=== PATIENT | female | born 1975 | race Caucasian/White ===

== ENCOUNTER 2021-04-10 07:06 | Outpatient (REF) | payer OTHER, SELFPAY ==
[2021-04-10 07:47] LABS: Hematocrit 43.4 % (37-47); PLT CLUMP 1
[2021-04-10 07:49] LABS: Hemoglobin 14.1 g/dl (12.0-16.0); Mean Corpuscular HGB Conc 32.5 g/dl (31.0-35.0); Mean Corpuscular Hemoglobin 29.8 pg (27.0-33.0); Mean Corpuscular Volume 91.8 fL (80-98); Mean Platelet Volume 10.6 fL (9.4-12.3); Red Blood Count 4.73 X10*6/uL (4.20-5.50); Red Cell Distribution Width 13.1 % (11.0-16.0); White Blood Count 4.5 X10*3/uL (4.8-10.8)
[2021-04-10 08:11] LABS: Alanine Aminotransferase 17 U/L (0-31); Albumin Level 4.2 g/dL (3.5-5.0); Alkaline Phosphatase 98 U/L (39-117); Anion Gap 15 (12-20); Aspartate Amino Transferase 21 U/L (5-31); Bilirubin Total 0.6 mg/dL (0.0-1.0); Blood Urea Nitrogen 9 mg/dL (9-16); Calcium 9.3 mg/dL (8.4-10.2); Carbon Dioxide 31 mmol/L (22-29); Chloride 98 mmol/L (96-108); Cholesterol 219 mg/dL; Estimated Glomerular Filt Rate > 60; Glucose Fasting 106 mg/dL (60-99); HDL Cholesterol 46 mg/dL; LDL Cholesterol Calculated 146 mg/dl; Potassium 4.4 mmol/L (3.3-5.1); Sodium 140 mmol/L (135-145); Total Protein 6.8 g/dL (6.5-8.0); Triglycerides 135 mg/dL
[2021-04-10 08:33] LABS: TSH reflex Free T4 1.34 uIU/mL (0.32-4.0); Vitamin D 25-OH Total 16.7 ng/mL (>30)
[2021-04-10 09:13] LABS: Reflex LDLD? No
[2021-04-10 09:46] LABS: Folate 3.7 ng/mL (> or = 4.0); Vitamin B12 375 pg/mL (200-900)
[2021-04-10 09:57] LABS: Glucose Urine UA NEG (NEG); Leukocyte Esterase Urine NEG (NEG); Nitrite Urine NEG (NEG); Urine Blood NEG (NEG); Urine Ketones 5 MG/DL (NEG); Urine Protein TRACE MG/DL (NEG-TRACE)
[2021-04-10 09:58] LABS: Appearance Urine CLEAR; Color Urine DARK YELLOW
== END 2021-04-10 07:07 | disposition home or self-care (01) ==
LOC: HO.LAB 07:06
PROVIDERS: PCP Hospitalist; Visit Provider Nurse Practitioner Family
DX: F17.200 Nicotine dependence, unspecified, uncomplicated (principal); F32.2 Major depressive disorder, single episode, severe without psychotic features; F41.0 Panic disorder [episodic paroxysmal anxiety]; I10 Essential (primary) hypertension
CPT/HCPCS: 36415; 80053; 80061; 81003; 82306; 82607; 82746; 84443; 85027

== ENCOUNTER 2022-09-15 06:54 | Outpatient (REF) | payer OTHER, SELFPAY ==
[2022-09-15 07:23] LABS: Hematocrit 45.9 % (37.0-47.0); Hemoglobin 14.3 g/dl (12.0-16.0); Mean Corpuscular HGB Conc 31.2 g/dl (31.0-35.0); Mean Corpuscular Hemoglobin 29.1 pg (27.0-33.0); Mean Corpuscular Volume 93.3 fL (80.0-98.0); Mean Platelet Volume 10.3 fL (9.4-12.3); Platelet Count 193 X10*3/uL (160-400); Red Blood Count 4.92 X10*6/uL (4.20-5.50); Red Cell Distribution Width 12.6 % (11.0-16.0); White Blood Count 5.1 X10*3/uL (4.8-10.8)
[2022-09-15 07:49] LABS: Alanine Aminotransferase 15 U/L (0-31); Albumin Level 4.1 g/dL (3.5-5.0); Alkaline Phosphatase 110 U/L (39-117); Anion Gap 17 (12-20); Aspartate Amino Transferase 20 U/L (5-31); Bilirubin Total 0.2 mg/dL (0.0-1.0); Blood Urea Nitrogen 6 mg/dL (9-16); Calcium 9.3 mg/dL (8.4-10.2); Carbon Dioxide 32 mmol/L (22-29); Chloride 98 mmol/L (96-108); Cholesterol 204 mg/dL; Estimated Glomerular Filt Rate > 60; Glucose Fasting 99 mg/dL (60-99); HDL Cholesterol 38 mg/dL; LDL Cholesterol Calculated 135 mg/dl; Potassium 4.7 mmol/L (3.3-5.1); Sodium 142 mmol/L (135-145); Total Protein 6.6 g/dL (6.5-8.0); Triglycerides 158 mg/dL
[2022-09-15 07:51] LABS: Creatinine Urine 151.03 mg/dL; Microalbum/Creatinine Ratio Ur 3.3 ug/mg cr
[2022-09-15 08:11] LABS: TSH reflex Free T4 1.56 uIU/mL (0.32-4.0)
== END 2022-09-15 06:55 | disposition home or self-care (01) ==
LOC: HO.LAB 06:54
PROVIDERS: PCP Physician Assistant; Visit Provider Physician Assistant
DX: I10 Essential (primary) hypertension (principal)
CPT/HCPCS: 36415; 80053; 80061; 82043; 84443; 85027

== ENCOUNTER → 2023-03-07 14:37 | Outpatient (BNVA) | payer OTHER, SELFPAY | PROVIDERS: PCP Physician Assistant; Visit Provider Nurse Practitioner Family | DX: M48.9 Spondylopathy, unspecified (principal); M25.561 Pain in right knee; M47.816 Spondylosis without myelopathy or radiculopathy, lumbar region; M54.16 Radiculopathy, lumbar region; Z91.81 History of falling | CPT/HCPCS: 99202 ==

== ENCOUNTER 2023-03-10 11:04 | Outpatient (REF) | payer OTHER, SELFPAY ==
--- NOTE | ~2023-03-10 | XR_ITS ---
EXAMINATION: XR lumbar spine 6V w bending CLINICAL INFORMATION: Reason for Exam M47.816 - Spondylosis without myelopathy or radiculopathy, lumbar region COMPARISON: None TECHNIQUE: 4 views of the lumbar spine FINDINGS: 5 nonrib-bearing lumbar-type vertebral bodies. Vertebral body heights are maintained. Alignment is maintained. Mild multilevel degenerative disc disease with loss of disc space height, facet arthropathy and disc osteophyte complexes. This is worst at. L4/L5 Atherosclerotic calcifications of the abdominal aorta. XR/XR lumbar spine 6V w bending IMPRESSION: Mild spondylosis of the lumbar spine, as above detailed.
--- NOTE | ~2023-03-10 | XR_ITS ---
EXAMINATION: XR cervical spine 3V CLINICAL INFORMATION: Pain COMPARISON: None TECHNIQUE: 3 views of the cervical spine were obtained. FINDINGS: The cervical spine is visualized to the level of C5 on the lateral view. Vertebral body alignment is maintained. Vertebral body heights are maintained. Lateral masses of C1 are well aligned on C2. Visualized portion of the dens is intact. Mild degenerative disc disease at C5/C6, manifested by disc space narrowing and osteophytosis. No prevertebral soft tissue swelling. XR/XR cervical spine 3V IMPRESSION: Mild spondylosis of the cervical spine, as above detailed. No significant spondylolisthesis.
--- NOTE | ~2023-03-10 | XR_ITS ---
EXAMINATION: XR KNEE, RIGHT CLINICAL INFORMATION: Right knee pain COMPARISON: 12/30/2006 TECHNIQUE: Three views of the right knee. FINDINGS: Tricompartmental joint space narrowing and osteophytosis. Small suprapatellar effusion. No acute fracture or dislocation. XR/XR knee RT 3V IMPRESSION: Moderate degenerative changes of the right knee joint.
== END 2023-03-10 11:05 | disposition home or self-care (01) ==
LOC: HO.XRAY 11:04
PROVIDERS: PCP Physician Assistant; Visit Provider Nurse Practitioner Family
DX: M25.561 Pain in right knee (principal); M47.816 Spondylosis without myelopathy or radiculopathy, lumbar region; M54.16 Radiculopathy, lumbar region; M48.9 Spondylopathy, unspecified; Z91.81 History of falling
CPT/HCPCS: 72040; 72114; 73562

== ENCOUNTER → 2023-04-13 15:23 | Outpatient (BNVA) | payer OTHER, SELFPAY | PROVIDERS: PCP Physician Assistant; Visit Provider Nurse Practitioner Family | DX: M47.816 Spondylosis without myelopathy or radiculopathy, lumbar region (principal); M17.11 Unilateral primary osteoarthritis, right knee; M25.561 Pain in right knee; M48.9 Spondylopathy, unspecified | CPT/HCPCS: 99212 ==

== ENCOUNTER 2023-11-17 15:04 | Outpatient (AMB) | payer OTHER, SELFPAY ==
[2023-11-17 15:05] VITALS: BP 134/86; PULSE 80; RESP 17; BMI 38.3
--- NOTE | 2023-11-17 15:05 | MHC.PC.OV ---
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 Accompanied by: Self / Same As Patient Allergies morphine [Morphine] Adverse Reaction (Intermediate, Verified 11/17/23 15:30) NAUSEA & VOMITING Seasonal IC Allergy (Unknown, Uncoded 11/17/23 15:05) sneeze, puff eyes Medication List - Last Reconciled 11/17/23 by Dexter Trejo PA-C acetaminophen 500 mg PO Q6H PRN cane As directed celecoxib 200 mg PO BID PRN cholecalciferol (vitamin D3) 25 mcg PO DAILY 90 days clobetasol 0.05% 1 appl topical BEDTIME 30 days clonazepam 1 mg PO BID commode (bedside commode) As directed quetiapine 400 mg PO BEDTIME sertraline 100 mg PO DAILY tizanidine 2 mg PO BEDTIME PRN 30 days trazodone 150 mg PO BEDTIME PRN triamcinolone acetonide 0.1% 1 appl topical BID Tobacco use date assessed: 11/17/23 Dental Screening Dental Screen Date: 11/17/23 Did you have a dental visit in the last 12 months?: No Did you have a dental problem in the last 6 months where you did not have access to dental care?: No Was dental information given to patient?: No (No teeth) HPI Of hypertension and smoking cessation HPI Details Patient is a 48-year-old female here today for a follow-up visit.? Patient has a past medical history significant for generalized anxiety disorder, major depressive disorder, tobacco dependency, hypertension, Eczema and psoriasis,? obesity and degenerative disc disease in cervical spine. ---> It has been quite awhile since she has been seen here the PCP office as she has severe depression and anxiety which causes her trouble to make it to medical appointments due to her mental health. Concern--> CHRONIC MEDICAL ISSUES--> Major depressive disorder/ generalized anxiety disorder:? Patient is followed by both mental health therapist and a psychiatrist ( Dr Coyne)? to manage her mental health medications .. Tobacco dependency:? Patient does understand she needs to quit smoking though has difficulty to do so. She reports she has cut down her smoking slightly..? Not willing to quit smoking at this time. ... Degenerative disc disease cervical spine:? Has seen spinal specialist in the past and was told she is not a surgical candidate.? Has done physical therapy in cortisone injections in the past without much relief of her back pain. ? Continues to use p.r.n. use of tizanidine and daily use of Tylenol with only minimal relief of her pain. [facility] Surgical History No pertinent past surgical history Family History Mother Hypertension IBS (irritable bowel syndrome) Depression Anxiety Mental health disorder CAD (coronary artery disease) Father CAD (coronary artery disease) Sister Mental health disorder Brother Mental health disorder Social History Housing: Apartment Alcohol intake: current Alcohol intake frequency: holidays/special occasions only Patient Tobacco Use Status: Current everyday Tobacco user Tobacco use type: Cigarette Cigarette Packs Per Day: 1 Cigarettes Per Day: 20 e-Cigarette/Vaping Use: Never Used Second Hand Smoke Exposure: Yes service: No Current occupational status: disabled Cognitive needs: Yes (walker/cane) Hearing needs: No Vision needs: Yes (glasses) Questionnaire PHQ-9 Over the last 2 weeks, how often have you been bothered by any of the following problems? 1. Little interest or pleasure in doing things: more than half the days 2. Feeling down, depressed, or hopeless: nearly every day 3. Trouble falling or staying asleep, or sleeping too much: nearly every day 4. Feeling tired or having little energy: more than half the days 5. Poor appetite or overeating: several days 6. Feeling bad about yourself - or that you are a failure or have let yourself or your family down: nearly every day 7. Trouble concentrating on things, such as reading the newspaper or watching television: nearly every day 8. Moving or speaking so slowly that other people could have noticed. Or the opposite - being so fidgety or restless that you have been moving around a lot more than usual: more than half the days 9. Thoughts that you would be better off or of hurting yourself in some way: several days Total score: 20 Depression Screening Interpretation: Positive Depression Screening Follow-up: Existing condition and In treatment Depression Screening Done: Yes 16205 - PHQ-9 Billing: Yes Source: Developed by Drs. Tejas Luevano, Chantel Cardona, Kolby Marks and colleagues, with an educational katelyn from [employer]. Thrive Questionnaire Date Thrive assessed: 11/17/23 I am a: Patient What is your living situation today?: I have a steady place to live Within the past 12 months, did the food you bought not last and you didn't have the money to get more?: Never true Within the past 12 months, did you worry whether your food would run out before you got money to buy more?: Never true Do you have trouble paying for medicines?: No Do you have trouble getting transportation to medical appointments?: No Do you have trouble paying your heating and electricity bill?: No Do you have trouble taking care of your child, family member or friend?: No Do you have trouble with day-to-day activities such as bathing, preparing meals, shopping, managing finances, etc.?: No Are you currently unemployed and looking for a job?: No Are you interested in more education?: No Please select the resources that you would like help with: None Currently or been in a relationship where the following occur: no concerns reported AUDIT C Alcohol Use Questionnaire (AUDIT-C) 1. How often do you have a drink containing alcohol?: Monthly or less 2. How many drinks containing alcohol do you have on a typical day when you are drinking?: 1 or 2 3. How often do you have six or more drinks on one occasion?: Never Total Score: 1 ARON-7 AMB Questionnaire ARON-7 Date ARON - 7 assessed: 11/17/23 Feeling nervous, anxious, or on edge: 2 = More than half the days Not being able to stop or control worryin = More than half the days Worrying too much about different things: 3 = Nearly every day Trouble relaxin = Nearly every day Being so restless that it is hard to sit still: 2 = More than half the days Becoming easily annoyed or irritable: 2 = More than half the days Feeling afraid as if something awful might happen: 2 = More than half the days Total ARON-7 score (0-4 normal; 5-9 mild; 10-14 moderate; 15-21 severe): 16 Source: Developed by Drs. Tejas Luevano, Chantel Cardona, Kolby Marks and colleagues, with an educational katelyn from [employer]. ARON-7 Assessment Billing ARON-7 Assessment Tool: ARON-7 Assessment 70850 Review of Systems Const Denies headache(s) Eyes Denies loss of vision ENT Denies vertigo, Denies dizziness, Denies headache(s) and Denies sore throat Card Denies chest pain, Denies leg edema and Denies lightheadedness Resp Denies cough, Denies hemoptysis and Denies wheezing GI Denies abdominal pain, Denies melena, Denies constipation, Denies diarrhea and Denies vomiting Denies urinary frequency, Denies dysuria and Denies urinary urgency Musc Denies arthralgias, Denies joint swelling, Denies numbness and Denies tingling Neuro Denies Abnormal speech present, Denies behavioral changes, Denies vertigo, Denies dizziness, Denies headache(s), Denies loss of vision, Denies memory loss, Denies numbness and Denies tingling Psych Denies anxiety, Denies behavioral changes, Denies depression, Denies memory loss and Denies panic attacks Severino/Lymph Denies easy bleeding and Denies easy bruising Aller/Immun Denies wheezing Physical exam (Primary Care) Vital Signs: Last Vital Signs Pulse 80 11/17/23 15:05 Resp 17 11/17/23 15:05 BP 134/86 11/17/23 15:05 BMI result Body Mass Index 38.3 BMI Assessment/Plan discussion: High Tobacco/Smoking Status: Tobacco use Status Tobacco use date assessed 11/17/23 11/17/23 15:07 Patient Tobacco Use Status Current everyday Tobacco 11/17/23 15:07 Tobacco use type Cigarette 11/17/23 15:07 e-Cigarette/Vaping Use Never Used 11/17/23 15:07 Are you ready to quit: No Tobacco cessation counseling provided: Yes Items discussed: Nicotine replacement Relapse Prevention: discussed the importance of a supportive environment, discussed negative mood or depression after quitting, weight gain after smoking is common and discussed dietary, exercise and/or lifestyle changes Number of minutes spent counselin CPT code: 49541 - 4-10 Minutes PHQ-9: PHQ-9 Score PHQ-9: Total score 20 11/17/23 15:30 Depression Screening Interpretation: Positive Depression Screening Follow-up: Existing condition and In treatment Thrive Assessment: Date of Thrive Assessment Date Thrive assessed 11/17/23 11/17/23 15:07 Currently or been in a relationship where the following occur: no concerns reported Const Other: Morbidly obese General: no acute distress, alert and awake Nutritional Appearance: well nourished Orientation/consciousness: oriented to person, oriented to place and oriented to time HENMT Ears: TM's normal bilaterally General nose exam: Normal nasal mucous membranes and turbinates present Eyes Conjunctivae: conjunctivae normal Sclerae: sclerae normal Pupils: Equal, round and reactive pupils present Neck Neck: Yes no lymphadenopathy and Yes no JVD Thyroid: Thyroid normal Carotids: no bruits Resp Effort & Inspection: normal respiratory effort and not tachypneic Auscultation: no crackles, no rales, no rhonchi and no wheezes Cardio Rate: regular rate Rhythm: regular rhythm Heart sounds: no murmurs and normal S1 and S2 GI Palpation (GI): Soft to palpation, nontender, no hepatomegaly and no splenomegaly Auscultation: normal bowel sounds Skin General skin exam: no rashes or lesions noted and dry skin Neuro General: oriented to person, oriented to place and oriented to time Cranial nerves: Yes Equal, round and reactive pupils present Speech: No Abnormal speech present Gait exam (Neuro): Normal gait present Motor exam (neuro): no tremor noted Extrem Right upper extremity: full ROM Left upper extremity: full ROM Right lower extremity: full ROM; no edema Left lower extremity: full ROM; no edema Psych Mental Status: mental status grossly normal Speech and movement: Normal speech and movement present Affect: normal affect Attitude: cooperative Thought process: Normal thought process present Assessment and Plan Assessment & Plan (1) Tobacco use disorder: Code(s): F17.200 - Nicotine dependence, unspecified, uncomplicated Plan: Patient continues to smoke a half pack of cigarettes per day. She has been able to reduce her cigarette smoking over the last year. He is not interested in starting nicotine replacement or medication at this time. She will like to wean her cigarettes on her own. (2) Cervical spine disease: Code(s): M48.9 - Spondylopathy, unspecified Plan: Has seen pain management several months ago was started on Celebrex which she reports is helpful. She is not interested procedures such as injections or surgery. Offered her physical therapy and she is considering. (3) Obese: Code(s): E66.9 - Obesity, unspecified Qualifiers: Body mass index: BMI 38.0-38.9 Obesity classification: adult class 2 (BMI 35 - 39.9) Obesity type: due to excess calories Serious obesity comorbidity presence: without serious comorbidity Qualified Code(s): E66.09 - Other obesity due to excess calories; Z68.38 - Body mass index [BMI] 38.0-38.9, adult Plan: Patient does understand her BMI is over 30 and will work on being more physically active and adapting to better eating habits to reduce her weight (4) RAON (generalized anxiety disorder): Code(s): F41.1 - Generalized anxiety disorder Plan: Patient's ARON-7 score positive for moderate anxiety which has been existing condition for her.. Continues to speak with a mental therapist who manages her mental health medications. She reports he feels stable at this time. (5) Tobacco dependence: Code(s): F17.200 - Nicotine dependence, unspecified, uncomplicated Plan: She does understand she needs to quit smoking and is willing to try nicotine patches per (6) Asthma: Code(s): J45.909 - Unspecified asthma, uncomplicated Qualifiers: Asthma complication type: uncomplicated Asthma persistence: intermittent Asthma severity: mild Qualified Code(s): J45.20 - Mild intermittent asthma, uncomplicated Plan: She reports her asthma has been fairly stable, rarely uses her albuterol inhaler. Denies any recent asthma exacerbations or nighttime awakenings with asthma symptoms (7) MDD (major depressive disorder), recurrent episode, moderate: Code(s): F33.1 - Major depressive disorder, recurrent, moderate Plan: Patient's PHQ-9 score positive for depression which has been existing condition for her. She does feel pretty depressed at times> Again does speak with a mental health therapist and psychiatrist. Medications: New albuterol sulfate 90 mcg/actuation (Ventolin HFA) 1 inh inhalation QID 30 days 8.5 grams 3RF F17.200 - Nicotine dependence, unspecified, uncomplicated, F33.1 - Major depressive disorder, recurrent, moderate, J40 - Bronchitis, not specified as acute or chronic Coding Level of Care Code Est Pt Level 4 (59548) Diagnoses Tobacco use disorder F17.200 Cervical spine disease M48.9 Class 2 obesity due to excess calories without serious comorbidity with body mass index (BMI) of 38.0 to 38.9 in adult E66.09; Z68.38 Body mass index: BMI 38.0-38.9 Obesity classification: adult class 2 (BMI 35 - 39.9) Obesity type: due to excess calories Serious obesity comorbidity presence: without serious comorbidity ARON (generalized anxiety disorder) F41.1 Tobacco dependence F17.200 Mild intermittent asthma without complication J45.20 Asthma complication type: uncomplicated Asthma persistence: intermittent Asthma severity: mild MDD (major depressive disorder), recurrent episode, moderate F33.1 Additional Codes ARON-7 Assessment Billing - ARON-7 Assessment Tool: ARON-7 Assessment 07384 ([id number]) Vital Signs *Quality* - CPT code: 38393 - 4-10 Minutes ([id number])
== END 2023-11-17 15:48 | disposition home or self-care (01) ==
PROVIDERS: PCP Physician Assistant; Visit Provider Physician Assistant
DX: M48.9 Spondylopathy, unspecified (principal); F33.1 Major depressive disorder, recurrent, moderate; E66.09 Other obesity due to excess calories; Z68.38 Body mass index [BMI] 38.0-38.9, adult; F17.210 Nicotine dependence, cigarettes, uncomplicated; F41.1 Generalized anxiety disorder; J45.20 Mild intermittent asthma, uncomplicated
CPT/HCPCS: 99214

== ENCOUNTER 2024-05-03 08:10 | Outpatient (AMB) | payer OTHER, SELFPAY ==
[2024-05-03 08:54] VITALS: BP 128/70; PULSE 67; O2SAT 94; BMI 35.3
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
== END 2024-05-03 09:28 | disposition home or self-care (01) ==
PROVIDERS: PCP Physician Assistant; Visit Provider Physician Assistant
DX: M48.9 Spondylopathy, unspecified (principal); F33.1 Major depressive disorder, recurrent, moderate; E66.09 Other obesity due to excess calories; Z68.38 Body mass index [BMI] 38.0-38.9, adult; F17.200 Nicotine dependence, unspecified, uncomplicated; F41.1 Generalized anxiety disorder; J45.20 Mild intermittent asthma, uncomplicated; M25.461 Effusion, right knee
CPT/HCPCS: 99214; G2211

== ENCOUNTER → 2024-05-25 08:04 | Outpatient (REF) | payer OTHER, SELFPAY ==
--- NOTE | 2024-05-25 08:13 | ECG_ITS ---
Test Reason : ck qt methadone Blood Pressure : / mmHG Vent. Rate : 083 BPM Atrial Rate : 083 BPM P-R Int : 156 ms QRS Dur : 082 ms QT Int : 394 ms P-R-T Axes : 066 012 000 degrees QTc Int : 462 ms Normal sinus rhythm Nonspecific T wave abnormality Abnormal ECG No previous ECGs available Referred By: Allie Coon Electronically Signed By:Ryan Hernandez
== END ==
LOC: HO.CARD 08:04
PROVIDERS: PCP Physician Assistant; Visit Provider Registered Nurse General Practice
DX: Z79.899 Other long term (current) drug therapy (principal)
CPT/HCPCS: 93005

== ENCOUNTER → 2024-05-25 08:13 | Outpatient (BNV) | payer OTHER, SELFPAY | PROVIDERS: PCP Physician Assistant; Visit Provider Internal Medicine Cardiovascular Disease | DX: R94.31 Abnormal electrocardiogram [ECG] [EKG] (principal) | CPT/HCPCS: 93010 ==

== ENCOUNTER 2024-11-19 09:32 | Outpatient (REF) | payer OTHER, SELFPAY ==
[2024-11-19 19:08] LABS: Influenza A PCR NEGATIVE (Negative); Influenza B PCR NEGATIVE (Negative); Resp Syncy Virus RNA Qual PCR NEGATIVE (Negative); SARS COV2 PCR INHOUSE NEGATIVE (Negative)
== END 2024-11-19 09:33 | disposition home or self-care (01) ==
LOC: HO.LNP 09:32
PROVIDERS: PCP Physician Assistant; Visit Provider Physician Assistant
DX: J06.9 Acute upper respiratory infection, unspecified (principal); F33.1 Major depressive disorder, recurrent, moderate; M19.90 Unspecified osteoarthritis, unspecified site; I10 Essential (primary) hypertension; F17.200 Nicotine dependence, unspecified, uncomplicated; Z71.6 Tobacco abuse counseling
CPT/HCPCS: 0241U; 96127; 99212

== ENCOUNTER 2024-11-19 09:32 | Outpatient (AMB) | payer OTHER, SELFPAY ==
[2024-11-19 09:49] VITALS: BP 124/72; PULSE 101; TEMP 37; O2SAT 92; BMI 33.3
--- NOTE | 2024-11-19 09:49 | MHC.PC.OV ---
Vital Signs 11/19/24 09:49 Height 5 ft 2 in Weight 182 lb BMI 33.3 BP 124/72 Blood Pressure Location Lt brachial Position Sitting Pulse 101 H Pulse Source Pulse Oximeter Temp 98.6 F Temp Source Oral Pulse Oximetry (%) 92 Oxygen Delivery Method Room Air Intake Visit Reasons: f/u Cervical spine issue, HTN Commercial Loan Underwriter Required: No Accompanied by: Self / Same As Patient Allergies morphine [Morphine] Adverse Reaction (Intermediate, Verified 11/19/24 10:03) NAUSEA & VOMITING Seasonal IC Allergy (Unknown, Uncoded 11/19/24 10:03) sneeze, puff eyes Medication List - Last Reconciled 11/19/24 by Dexter Trejo PA-C acetaminophen 500 mg PO Q6H PRN albuterol sulfate 90 mcg/actuation (Ventolin HFA) 1 inh inhalation QID 30 days cane As directed celecoxib 200 mg PO BID PRN cholecalciferol (vitamin D3) 25 mcg PO DAILY 90 days clobetasol 0.05% 1 appl topical BEDTIME 30 days clonazepam 1 mg PO Q8H 30 days commode (bedside commode) As directed quetiapine 400 mg (2 x 200 mg) PO BEDTIME 30 days sertraline 100 mg PO DAILY 30 days tizanidine 4 mg PO BEDTIME 30 days trazodone 150 mg (3 x 50 mg) PO BEDTIME 30 days triamcinolone acetonide 0.1% 1 appl topical BID Tobacco use date assessed: 11/19/24 Dental Screening Dental Screen Date: 11/19/24 Did you have a dental visit in the last 12 months?: Yes Did you have a dental problem in the last 6 months where you did not have access to dental care?: No Was dental information given to patient?: Patient has dentist HPI f/u Cervical spine issue, HTN HPI Details Patient is a 49-year-old female here today for a follow-up visit.? Patient has a past medical history significant for generalized anxiety disorder, major depressive disorder, tobacco dependency, hypertension, Eczema and psoriasis,? obesity and degenerative disc disease in cervical spine. Concern--> She reports experiencing a cough for the past two to three days, accompanied by greenish phlegm. She describes feeling generally unwell and prefers staying in bed during this time. The patient notes that while she has been feeling better due to medication for other conditions, the cold symptoms persist. Her cough has not necessitated additional medical interventions previously. She denies wanting a chest X-ray but agreed to nasal swabbing for flu, RSV, and COVID testing CHRONIC MEDICAL ISSUES--> Major depressive disorder/ generalized anxiety disorder:? Patient unfortunately lost her psychiatrist and a mental therapist at the mental health group she was going to. Now has PCP managing her mental health medications. She feels stable on her current doses of mental health medications though would still like to see a psychiatrist in mental health therapist. .. Tobacco dependency:? Patient does understand she needs to quit smoking though has difficulty to do so. She reports she has cut down her smoking slightly..? Not willing to quit smoking at this time. ... Degenerative disc disease cervical spine:? Has seen spinal specialist in the past and was told she is not a surgical candidate.? Has done physical therapy in cortisone injections in the past without much relief of her back pain. ? Continues to use p.r.n. use of tizanidine and daily use of Tylenol with only minimal relief of her pain. [facility], LAT[facility] Surgical History No pertinent past surgical history Family History Mother Hypertension IBS (irritable bowel syndrome) Depression Anxiety Mental health disorder CAD (coronary artery disease) Father CAD (coronary artery disease) Sister Mental health disorder Brother Mental health disorder Social History Housing: Apartment Alcohol intake: current Alcohol intake frequency: holidays/special occasions only Patient Tobacco Use Status: Current everyday Tobacco user Tobacco use type: Cigarette Cigarette Packs Per Day: 1 Cigarettes Per Day: 20 e-Cigarette/Vaping Use: Never Used Second Hand Smoke Exposure: Yes service: No Current occupational status: disabled Cognitive needs: Yes (walker/cane) Hearing needs: No Vision needs: Yes (glasses) Questionnaire PHQ-9 Over the last 2 weeks, how often have you been bothered by any of the following problems? 27049 - PHQ-9 Billing: Patient declined-do not bill Source: Developed by Drs. Tejas Luevano, Chantel B.WKolby Nielson and colleagues, with an educational katelyn from [employer]. Thrive Questionnaire Date Thrive assessed: 11/19/24 I am a: Patient What is your living situation today?: I have a steady place to live Within the past 12 months, did the food you bought not last and you didn't have the money to get more?: Never true Within the past 12 months, did you worry whether your food would run out before you got money to buy more?: Never true Do you have trouble paying for medicines?: No Do you have trouble getting transportation to medical appointments?: No Do you have trouble paying your heating and electricity bill?: No Do you have trouble taking care of your child, family member or friend?: No Do you have trouble with day-to-day activities such as bathing, preparing meals, shopping, managing finances, etc.?: No Are you currently unemployed and looking for a job?: No Are you interested in more education?: No Please select the resources that you would like help with: None Currently or been in a relationship where the following occur: No concerns reported THRIVE Score: 0 AUDIT C Alcohol Use Questionnaire (AUDIT-C) 1. How often do you have a drink containing alcohol?: Monthly or less 2. How many drinks containing alcohol do you have on a typical day when you are drinking?: 1 or 2 3. How often do you have six or more drinks on one occasion?: Never Total Score: 1 ARON-7 AMB Questionnaire ARON-7 Date ARON - 7 assessed: 11/19/24 Source: Developed by Drs. Tejas Luevano, Kolby Rodrigez and colleagues, with an educational katelyn from [employer]. ARON-7 Assessment Billing ARON-7 Assessment Tool: ARON-7 Assessment 19651 (Pt refused today) Review of Systems Const Denies headache(s) Eyes Denies loss of vision ENT Denies vertigo, Denies dizziness, Denies headache(s) and Denies sore throat Card Denies chest pain, Denies leg edema and Denies lightheadedness Resp Reports cough, Denies hemoptysis and Denies wheezing GI Denies abdominal pain, Denies melena, Denies constipation, Denies diarrhea and Denies vomiting Denies urinary frequency, Denies dysuria and Denies urinary urgency Musc Denies arthralgias, Denies joint swelling, Denies numbness and Denies tingling Neuro Denies Abnormal speech present, Denies behavioral changes, Denies vertigo, Denies dizziness, Denies headache(s), Denies loss of vision, Denies memory loss, Denies numbness and Denies tingling Psych Denies anxiety, Denies behavioral changes, Denies depression, Denies memory loss and Denies panic attacks Severino/Lymph Denies easy bleeding and Denies easy bruising Aller/Immun Denies wheezing Physical exam (Primary Care) Vital Signs: Last Vital Signs Temp 98.6 F 11/19/24 09:49 Pulse 101 H 11/19/24 09:49 BP 124/72 11/19/24 09:49 Pulse Ox 92 11/19/24 09:49 Oxygen Delivery Method Room Air 11/19/24 09:49 BMI result Body Mass Index 33.3 Tobacco/Smoking Status: Tobacco use Status Tobacco use date assessed 11/19/24 11/19/24 09:58 Patient Tobacco Use Status Current everyday Tobacco 11/19/24 09:51 Tobacco use type Cigarette 11/19/24 09:51 e-Cigarette/Vaping Use Never Used 11/19/24 09:51 Are you ready to quit: No Tobacco cessation counseling provided: Yes Items discussed: Nicotine replacement and QuitWorks Relapse Prevention: discussed the importance of a supportive environment, discussed negative mood or depression after quitting, weight gain after smoking is common and discussed dietary, exercise and/or lifestyle changes Number of minutes spent counselin CPT code: 23571 - 4-10 Minutes Thrive Assessment: Date of Thrive Assessment Date Thrive assessed 11/19/24 11/19/24 09:58 Currently or been in a relationship where the following occur: No concerns reported Const General: healthy appearing, no acute distress, alert and awake Nutritional Appearance: well nourished Orientation/consciousness: oriented to person, oriented to place and oriented to time HENMT Ears: TM's normal bilaterally General nose exam: Normal nasal mucous membranes and turbinates present Eyes Conjunctivae: conjunctivae normal Sclerae: sclerae normal Pupils: Equal, round and reactive pupils present Neck Neck: Yes no lymphadenopathy and Yes no JVD Thyroid: Thyroid normal Carotids: no bruits Resp Effort & Inspection: normal respiratory effort and not tachypneic Auscultation: no crackles, no rales, no rhonchi and no wheezes Cardio Rate: regular rate Rhythm: regular rhythm Heart sounds: no murmurs and normal S1 and S2 GI Palpation (GI): Soft to palpation, nontender, no hepatomegaly and no splenomegaly Auscultation: normal bowel sounds Skin General skin exam: no rashes or lesions noted and dry skin Neuro General: oriented to person, oriented to place and oriented to time Cranial nerves: Yes Equal, round and reactive pupils present Speech: No Abnormal speech present Gait exam (Neuro): Normal gait present Motor exam (neuro): no tremor noted Extrem Right upper extremity: full ROM Left upper extremity: full ROM Right lower extremity: full ROM; no edema Left lower extremity: full ROM; no edema Psych Mental Status: mental status grossly normal Speech and movement: Normal speech and movement present Affect: normal affect Attitude: cooperative Thought process: Normal thought process present Coding Level of Care Code Est Pt Level 4 (00721) Diagnoses Viral upper respiratory tract infection J06.9 URI type: unspecified viral URI MDD (major depressive disorder), recurrent episode, moderate F33.1 Arthritis M19.90 Essential hypertension I10 Hypertension type: essential hypertension Tobacco dependence F17.200 Additional Codes ARON-7 Assessment Billing - ARON-7 Assessment Tool: ARON-7 Assessment 34391 ([id number]) Vital Signs *Quality* - CPT code: 62665 - 4-10 Minutes ([id number]) Assessment & Plan Assessment & Plan (1) Upper respiratory infection: Code(s): J06.9 - Acute upper respiratory infection, unspecified Category: Medical Qualifiers: URI type: unspecified viral URI Qualified Code(s): J06.9 - Acute upper respiratory infection, unspecified Plan: She reports experiencing a cough for the past two to three days, accompanied by greenish phlegm. She describes feeling generally unwell and prefers staying in bed during this time. The patient notes that while she has been feeling better due to medication for other conditions, the cold symptoms persist. Her cough has not necessitated additional medical interventions previously. She denies wanting a chest X-ray but agreed to nasal swabbing for flu, RSV, and COVID testing (2) MDD (major depressive disorder), recurrent episode, moderate: Code(s): F33.1 - Major depressive disorder, recurrent, moderate Category: Medical Plan: Patient reports her depression has been well controlled with current mental health medications. Unfortunately lost access to her mental health therapist and a psychiatrist now needs PCP managing her mental health medications. She would like a referral back to mental health therapy in eventually psychiatry . (3) Arthritis: Code(s): M19.90 - Unspecified osteoarthritis, unspecified site Category: Medical Plan: Continues to have arthritic pain though has been managing well with use of her cane, Tylenol and Celebrex. (4) HTN (hypertension): Code(s): I10 - Essential (primary) hypertension Category: Medical Qualifiers: Hypertension type: essential hypertension Qualified Code(s): I10 - Essential (primary) hypertension Plan: Patient's blood pressure acceptable today in office. She has been able to manage her blood pressure with lifestyle and dietary modifications. Goal blood pressures to remain below 140/90 (5) Tobacco dependence: Code(s): F17.200 - Nicotine dependence, unspecified, uncomplicated Category: Medical Plan: Patient does understand she needs to completely quit smoking. She does report cutting down. She is not interested in any nicotine replacement or medications at this time. Orders: Orders SARS-CoV2/FLU/RSV Today J06.9 - Acute upper respiratory infection, unspecified Referrals Counseling Referral F33.1 - Major depressive disorder, recurrent, moderate
== END 2024-11-19 10:19 | disposition home or self-care (01) ==
PROVIDERS: PCP Physician Assistant; Visit Provider Physician Assistant
DX: J06.9 Acute upper respiratory infection, unspecified (principal); F33.1 Major depressive disorder, recurrent, moderate; M19.90 Unspecified osteoarthritis, unspecified site; I10 Essential (primary) hypertension; F17.200 Nicotine dependence, unspecified, uncomplicated

== ENCOUNTER → 2025-06-05 07:14 | Outpatient (REF) | payer OTHER, SELFPAY ==
--- NOTE | 2025-06-05 07:37 | ECG_ITS ---
Test Reason : F11.20 Blood Pressure : */* mmHG Vent. Rate : 84 BPM Atrial Rate : 84 BPM P-R Int : 150 ms QRS Dur : 82 ms QT Int : 428 ms P-R-T Axes : 63 6 2 degrees QTcB Int : 505 ms Normal sinus rhythm Nonspecific ST and T wave abnormality Abnormal ECG When compared with ECG of 25-May-2024 08:23, No significant change was found Referred By: Dexter Trejo Electronically Signed By: Ryan Hernandez
== END ==
LOC: HO.CARD 07:14
PROVIDERS: PCP Physician Assistant; Visit Provider Physician Assistant
DX: F11.20 Opioid dependence, uncomplicated (principal)
CPT/HCPCS: 93005

== ENCOUNTER → 2025-06-05 07:37 | Outpatient (BNV) | payer OTHER, SELFPAY | PROVIDERS: PCP Physician Assistant; Visit Provider Internal Medicine Cardiovascular Disease | DX: R94.31 Abnormal electrocardiogram [ECG] [EKG] (principal); F11.20 Opioid dependence, uncomplicated | CPT/HCPCS: 93010 ==

== ENCOUNTER 2025-08-19 14:59 | Outpatient (AMB) | payer OTHER, SELFPAY ==
--- NOTE | 2025-08-19 15:10 | MHC.PC.OV ---
Vital Signs 08/19/25 15:12 Height 5 ft 2 in Weight 191 lb 4 oz BMI 35.0 BP 120/70 Blood Pressure Location Lt brachial Position Sitting Pulse 94 Pulse Source Pulse Oximeter Temp 97.3 F Temp Source Temporal Artery Scan Pulse Oximetry (%) 95 Oxygen Delivery Method Room Air Intake Visit Reasons: Annual Exam Intake Note: Patient is here today for a physical. Lot Associate Required: No Portfolio Specialist: Not Required per policy Accompanied by: Self / Same As Patient Allergies morphine (Morphine) Adverse Reaction (Intermediate, Verified 08/19/25 15:22) NAUSEA & VOMITING Seasonal IC Allergy (Unknown, Uncoded 08/19/25 15:22) sneeze, puff eyes Medication List - Last Reconciled 08/19/25 by Dexter Trejo PA-C acetaminophen 500 mg PO Q6H PRN albuterol sulfate 90 mcg/actuation (Ventolin HFA) 1 puff inhalation QID cane As directed celecoxib 200 mg PO BID PRN cholecalciferol (vitamin D3) 25 mcg PO DAILY 90 days clobetasol 0.05% 1 appl topical BEDTIME 30 days clonazepam 1 mg PO Q8H 30 days commode (bedside commode) As directed quetiapine 400 mg (2 x 200 mg) PO BEDTIME 30 days sertraline 100 mg PO DAILY tizanidine 4 mg PO BEDTIME 30 days trazodone 150 mg (3 x 50 mg) PO BEDTIME 30 days triamcinolone acetonide 0.1% 1 appl topical BID Tobacco use date assessed: 08/19/25 Dental Screening Dental Screen Date: 11/19/24 HPI Annual Exam HPI Details Patient is a 50-year-old female here today for an annual physical? Patient has a past medical history significant for generalized anxiety disorder, major depressive disorder, tobacco dependency, hypertension, Eczema and psoriasis,? obesity and degenerative disc disease in cervical spine. Concern--> She reports experiencing a cough for the past two to three days, accompanied by greenish phlegm. She describes feeling generally unwell and prefers staying in bed during this time. The patient notes that while she has been feeling better due to medication for other conditions, the cold symptoms persist. Her cough has not necessitated additional medical interventions previously. Major depressive disorder/ generalized anxiety disorder:? Patient unfortunately lost her psychiatrist and a mental therapist at the mental health group she was going to. Now has PCP managing her mental health medications. She feels stable on her current doses of mental health medications though would still like to see a psychiatrist in mental health therapist. .. Tobacco dependency:? Patient does understand she needs to quit smoking though has difficulty to do so. She reports she has cut down her smoking slightly..? Not willing to quit smoking at this time. ... Degenerative disc disease cervical spine:? Has seen spinal specialist in the past and was told she is not a surgical candidate.? Has done physical therapy in cortisone injections in the past without much relief of her back pain. ? Continues to use p.r.n. use of Celebrex and daily use of Tylenol with only minimal relief of her pain. .. Opiate dependency: Patient is followed by a methadone clinic and has been continuing to follow the clinic in weaning her methadone dose. Mammogram: Needs up-to-date mammogram- declines at this time Vaccines: Up-to-date with COVID vaccine and flu vaccine, needs pneumonia vaccine (declines at this time) Colon cancer screening: Cologuard done in 2022- repeat 3 years [facility] Surgical History No pertinent past surgical history Family History Mother Hypertension IBS (irritable bowel syndrome) Depression Anxiety Mental health disorder CAD (coronary artery disease) Father CAD (coronary artery disease) Sister Mental health disorder Brother Mental health disorder Social History Housing: Apartment Alcohol intake: current Alcohol intake frequency: holidays/special occasions only Patient Tobacco Use Status: Current everyday Tobacco user Tobacco use type: Cigarette Cigarette Packs Per Day: 0.5 Cigarettes Per Day: 7 e-Cigarette/Vaping Use: Never Used Second Hand Smoke Exposure: Yes service: No Current occupational status: disabled Cognitive needs: Yes (walker/cane) Hearing needs: No Vision needs: Yes (glasses) Questionnaire PHQ-9 Over the last 2 weeks, how often have you been bothered by any of the following problems? 1. Little interest or pleasure in doing things: several days 2. Feeling down, depressed, or hopeless: more than half the days 3. Trouble falling or staying asleep, or sleeping too much: several days 4. Feeling tired or having little energy: several days 5. Poor appetite or overeating: several days 6. Feeling bad about yourself - or that you are a failure or have let yourself or your family down: more than half the days 7. Trouble concentrating on things, such as reading the newspaper or watching television: several days 8. Moving or speaking so slowly that other people could have noticed. Or the opposite - being so fidgety or restless that you have been moving around a lot more than usual: several days 9. Thoughts that you would be better off or of hurting yourself in some way: not at all Total score: 10 Depression Screening Interpretation: Positive Depression Screening Follow-up: Existing condition Depression Screening Done: Yes 44679 - PHQ-9 Billing: Yes Source: Developed by Drs. Tejas Luevano, Chantel Cardona, Kolby Marks and colleagues, with an educational katelyn from [email or web address]. Thrive Questionnaire Date Thrive assessed: 11/19/24 I am a: Patient What is your living situation today?: I have a steady place to live Within the past 12 months, did the food you bought not last and you didn't have the money to get more?: Never true Within the past 12 months, did you worry whether your food would run out before you got money to buy more?: Never true Do you have trouble paying for medicines?: No Do you have trouble getting transportation to medical appointments?: No Do you have trouble paying your heating and electricity bill?: No Do you have trouble taking care of your child, family member or friend?: No Do you have trouble with day-to-day activities such as bathing, preparing meals, shopping, managing finances, etc.?: No Are you currently unemployed and looking for a job?: No Are you interested in more education?: No Please select the resources that you would like help with: None Currently or been in a relationship where the following occur: No concerns reported THRIVE Score: 0 AUDIT C Alcohol Use Questionnaire (AUDIT-C) 1. How often do you have a drink containing alcohol?: Never Total Score: 0 ARON-7 AMB Questionnaire ARON-7 Date ARON - 7 assessed: 11/19/24 Feeling nervous, anxious, or on edge: 0 = Not at all Not being able to stop or control worryin = Not at all Worrying too much about different things: 0 = Not at all Trouble relaxin = Not at all Being so restless that it is hard to sit still: 0 = Not at all Becoming easily annoyed or irritable: 0 = Not at all Feeling afraid as if something awful might happen: 0 = Not at all Total ARON-7 score (0-4 normal; 5-9 mild; 10-14 moderate; 15-21 severe): 0 Source: Developed by Drs. Tejas Luevano, Chantel Cardona, Kolby Marks and colleagues, with an educational katelyn from [email or web address]. Review of Systems Const Denies body aches, Denies chills, Denies excessive sweating, Denies fatigue, Denies fever(s) and Denies headache(s) Eyes Denies blurry vision ENT Denies dysphagia, Denies vertigo, Denies dizziness, Denies headache(s), Denies hearing loss and Denies tinnitus Card Denies chest pain, Denies chest pain with activity, Denies syncope, Denies irregular heart rhythm and Denies dyspnea Resp Denies chest congestion, Denies cough, Denies hemoptysis, Denies dyspnea and Denies wheezing GI Denies abdominal pain, Denies melena, Denies hematochezia, Denies coffee ground emesis, Denies dysphagia, Denies diarrhea, Denies nausea and Denies vomiting Denies urinary frequency, Denies dysuria, Denies urinary hesitancy and Denies urinary urgency Musc Denies arthralgias, Denies limited range of motion, Denies muscle cramps and Denies muscle weakness Skin/Breast Denies rash and Denies skin ulcer Neuro Denies Abnormal speech present, Denies confusion, Denies vertigo, Denies dizziness, Denies syncope, Denies headache(s), Denies memory loss and Denies seizure-like activity Psych Denies anxiety, Denies confusion, Denies depression, Denies memory loss, Denies panic attacks and Denies paranoia Endo Denies excessive sweating, Denies fatigue, Denies flushing, Denies polydipsia and Denies polyuria Aller/Immun Denies wheezing Physical exam (Primary Care) Vital Signs: Last Vital Signs Temp 97.3 F 08/19/25 15:12 Pulse 94 08/19/25 15:12 BP 120/70 08/19/25 15:12 Pulse Ox 95 08/19/25 15:12 Oxygen Delivery Method Room Air 08/19/25 15:12 BMI result Body Mass Index 35.0 BMI Assessment/Plan discussion: High BMI High, discussed plan: lifestyle, weight reduction, dietary and physical activity Tobacco/Smoking Status: Tobacco use Status Tobacco use date assessed 08/19/25 08/19/25 15:15 Patient Tobacco Use Status Current everyday Tobacco 08/19/25 15:19 Tobacco use type Cigarette 08/19/25 15:19 e-Cigarette/Vaping Use Never Used 08/19/25 15:19 Are you ready to quit: No Tobacco cessation counseling provided: Yes Items discussed: Nicotine replacement Relapse Prevention: discussed the importance of a supportive environment, discussed negative mood or depression after quitting, weight gain after smoking is common and discussed dietary, exercise and/or lifestyle changes Number of minutes spent counselin CPT code: 43137 - 4-10 Minutes PHQ-9: PHQ-9 Score PHQ-9: Total score 10 08/19/25 15:15 Depression Screening Interpretation: Positive Depression Screening Follow-up: Existing condition Thrive Assessment: Date of Thrive Assessment Date Thrive assessed 11/19/24 08/19/25 15:15 Currently or been in a relationship where the following occur: No concerns reported Const General: cooperative, comfortable, no acute distress, alert and awake; No confusion Orientation/consciousness: oriented to person, oriented to place, patient oriented x3 and No confusion HENMT Head: Yes normocephalic Ears: external ears normal and TM's normal bilaterally Face and sinus: No sinus tenderness Mouth: Normal oral and palatal mucosa present and tongue normal Teeth and gingiva: dentition normal and gingiva normal Throat: Yes posterior oropharynx normal, Yes tonsils normal and Yes uvula midline Eyes Conjunctivae: conjunctivae normal Sclerae: sclerae normal Pupils: Equal, round and reactive pupils present EOM: EOMs intact bilaterally Direct Ophthalmoscopy: No no photophobia Neck Neck: Yes no lymphadenopathy, No tender and Yes no JVD Thyroid: Thyroid normal Carotids: no bruits Chest Chest palpation & inspection: no tenderness Resp Effort & Inspection: normal respiratory effort, no audible wheezes, not labored and no stridor Auscultation: no crackles, no rales, no rhonchi and no wheezes Cardio Jugular venous distension: no JVD Rate: regular rate, not bradycardic and not tachycardic Rhythm: regular rhythm Bruits: no carotid bruits Peripheral pulses: Peripheral pulses 2+ throughout GI Inspection: Yes normal to inspection, No abdominal wall ecchymosis and No visible herniation Palpation (GI): Soft to palpation, nontender, no guarding, not rigid and No hepatosplenomegaly present Auscultation: normoactive bowel sounds General: Yes no CVA tenderness Back/Spine/Pelvis Back: no CVA tenderness and No back tenderness Cervical Spine: cervical ROM normal Thoracic/Lumbar Spine: thoracic and lumbar spine normal to inspection, straight leg raise negative bilaterally, No thoraco-lumbar ROM limited and No lumbar spinal tenderness Skin Lesions: no lesions Rashes: no rashes Wounds: no wounds Neuro General: oriented to person, oriented to place, patient oriented x3, CN's II-XI intact bilaterally and No confusion Cranial nerves: Yes Equal, round and reactive pupils present and Yes Normal accommodation reflex present Cognition (Neuro): normal cognition Speech: No Abnormal speech present Gait exam (Neuro): Normal gait present Motor exam (neuro): 5/5 motor strength present throughout Extrem Right upper extremity: full ROM; no cyanosis Left upper extremity: full ROM; no cyanosis Right lower extremity: no edema Left lower extremity: no edema Psych Appearance: grossly normal Mental Status: mental status grossly normal Affect: normal affect Attitude: cooperative Thought process: Normal thought process present Coding Level of Care Code Est Pt Prev Care 40-64y(28046) Diagnoses Annual physical exam Z00.00 Viral upper respiratory tract infection J06.9 URI type: unspecified viral URI MDD (major depressive disorder), recurrent episode, moderate F33.1 Arthritis M19.90 Essential hypertension I10 Hypertension type: essential hypertension Tobacco dependence F17.200 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 Eczema, unspecified type L30.9 Eczema type: unspecified Class 2 obesity E66.812 Lumbar radiculitis M54.16 Additional Codes PHQ-9 - 90650 - PHQ-9 Billing: Yes ([id number]) Vital Signs *Quality* - CPT code: 62945 - 4-10 Minutes ([id number]) Assessment & Plan Assessment & Plan (1) Annual physical exam: Code(s): Z00.00 - Encounter for general adult medical examination without abnormal findings Category: Medical Plan: As per HPI (2) Upper respiratory infection: Code(s): J06.9 - Acute upper respiratory infection, unspecified Category: Medical Qualifiers: URI type: unspecified viral URI Qualified Code(s): J06.9 - Acute upper respiratory infection, unspecified Plan: She reports experiencing a cough for the past two to three days, accompanied by greenish phlegm. She describes feeling generally unwell and prefers staying in bed during this time. The patient notes that while she has been feeling better due to medication for other conditions, the cold symptoms persist. Her cough has not necessitated additional medical interventions previously. (3) MDD (major depressive disorder), recurrent episode, moderate: Code(s): F33.1 - Major depressive disorder, recurrent, moderate Category: Medical Plan: Patient reports her depression has been well controlled with current mental health medications. Unfortunately lost access to her mental health therapist and a psychiatrist now needs PCP managing her mental health medications. She would like a referral back to mental health therapy in [facility] . (4) Arthritis: Code(s): M19.90 - Unspecified osteoarthritis, unspecified site Category: Medical Plan: Continues to have arthritic pain though has been managing well with use of her cane, Tylenol and Celebrex. (5) HTN (hypertension): Code(s): I10 - Essential (primary) hypertension Category: Medical Qualifiers: Hypertension type: essential hypertension Qualified Code(s): I10 - Essential (primary) hypertension Plan: Patient's blood pressure acceptable today in office. She has been able to manage her blood pressure with lifestyle and dietary modifications. Goal blood pressures to remain below 140/90 (6) Tobacco dependence: Code(s): F17.200 - Nicotine dependence, unspecified, uncomplicated Category: Medical Plan: Patient does understand she needs to completely quit smoking. She does report cutting down. She is not interested in any nicotine replacement or medications at this time. (7) Methadone maintenance therapy patient: Code(s): F11.20 - Opioid dependence, uncomplicated Category: Medical Plan: Continues to follow a local methadone plan. She denies any illicit street drug use. (8) Eczema: Code(s): L30.9 - Dermatitis, unspecified Category: Medical Qualifiers: Eczema type: unspecified Qualified Code(s): L30.9 - Dermatitis, unspecified Plan: For her eczema, a special shampoo and topical treatments such as clobetasol and triamcinolone creams will be prescribed to manage flare-ups. The patient is encouraged to continue using urea cream for maintenance. (9) Class 2 obesity: Code(s): E66.812 - Obesity, class 2 Category: Medical Plan: Patient does understand her BMI is over 35 and will work on better eating habits to reduce her weight. She has not been able back and neck pain (10) Lumbar radiculitis: Code(s): M54.16 - Radiculopathy, lumbar region Category: Medical Plan: Patient continues to ambulate with a cane due to her back issues, again currently on methadone which does help with her pain but is mostly managed for opiate dependency. She does have access to anti-inflammatories as needed for her pain as well. Orders: Orders Comprehensive [place]. Panel Fast Today I10 - Essential (primary) hypertension Microalbumin, Random (w Creat) Today I10 - Essential (primary) hypertension Complete Blood Count no Diff Today I10 - Essential (primary) hypertension Referrals Counseling Referral F33.1 - Major depressive disorder, recurrent, moderate Medications: New ketoconazole 2% 1 appl topical 3XW 120 mL 1RF 4 weeks L30.9 - Dermatitis, unspecified Changed From triamcinolone acetonide 0.1% Apply 1-2 times a day as needed for 2-4 weeks 1 appl topical BID 30 grams 0RF L30.9 - Dermatitis, unspecified To triamcinolone acetonide 0.1% Apply 1-2 times a day as needed for 2-4 weeks 1 appl topical BID 30 grams 3RF 4 weeks L30.9 - Dermatitis, unspecified Refilled albuterol sulfate 90 mcg/actuation (Ventolin HFA) 1 puff inhalation QID 18 ea 3RF F17.200 - Nicotine dependence, unspecified, uncomplicated, F33.1 - Major depressive disorder, recurrent, moderate, J40 - Bronchitis, not specified as acute or chronic tizanidine 4 mg PO BEDTIME 30 tabs 3RF muscle spasticity 30 days M48.9 - Spondylopathy, unspecified acetaminophen 500 mg PO Q6H PRN 30 tabs 3RF pain celecoxib Take it with food and full glass of water 200 mg PO BID PRN 60 caps 3RF for pain M17.11 - Unilateral primary osteoarthritis, right knee, M25.561 - Pain in right knee, M47.816 - Spondylosis without myelopathy or radiculopathy, lumbar region cholecalciferol (vitamin D3) 25 mcg PO DAILY 90 caps 4RF 90 days I10 - Essential (primary) hypertension clobetasol 0.05% 1 appl topical BEDTIME 50 mL 3RF 30 days B35.0 - Tinea barbae and tinea capitis
[2025-08-19 15:12] VITALS: BP 120/70; PULSE 94; TEMP 36.3; O2SAT 95; BMI 35.0
== END 2025-08-19 15:43 | disposition home or self-care (01) ==
LOC: HO.HMCH 15:00
PROVIDERS: PCP Physician Assistant; Visit Provider Physician Assistant
DX: Z00.00 Encounter for general adult medical examination without abnormal findings (principal); F33.1 Major depressive disorder, recurrent, moderate; E66.812 Obesity, class 2; Z68.35 Body mass index [BMI] 35.0-35.9, adult; F11.20 Opioid dependence, uncomplicated; J06.9 Acute upper respiratory infection, unspecified; M19.90 Unspecified osteoarthritis, unspecified site; I10 Essential (primary) hypertension; F17.200 Nicotine dependence, unspecified, uncomplicated; L30.9 Dermatitis, unspecified; M54.16 Radiculopathy, lumbar region

== ENCOUNTER → 2025-08-19 14:59 | Outpatient (BNVA) | payer OTHER, SELFPAY | PROVIDERS: PCP Physician Assistant; Visit Provider Physician Assistant | DX: Z00.00 Encounter for general adult medical examination without abnormal findings (principal); F41.1 Generalized anxiety disorder; F17.210 Nicotine dependence, cigarettes, uncomplicated; F11.20 Opioid dependence, uncomplicated; J06.9 Acute upper respiratory infection, unspecified; F33.1 Major depressive disorder, recurrent, moderate; M19.90 Unspecified osteoarthritis, unspecified site; I10 Essential (primary) hypertension; L30.9 Dermatitis, unspecified; E66.812 Obesity, class 2; M54.16 Radiculopathy, lumbar region; J40 Bronchitis, not specified as acute or chronic; M48.9 Spondylopathy, unspecified; M17.11 Unilateral primary osteoarthritis, right knee; M47.816 Spondylosis without myelopathy or radiculopathy, lumbar region; B35.0 Tinea barbae and tinea capitis; Z68.35 Body mass index [BMI] 35.0-35.9, adult | CPT/HCPCS: 96127; 99396 ==